=== PATIENT | female | born 2000 | race Caucasian/White ===

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

== ENCOUNTER 2021-04-25 15:01 | Emergency (ER) | payer BC ==
[2021-04-25 15:21] VITALS: TEMP 98.3
--- NOTE | 2021-04-25 16:16 | US ---
EXAMINATION TYPE: US venous doppler duplex LE LT DATE OF EXAM: 04/25/2021 4:08 PM COMPARISON: NONE CLINICAL HISTORY: 20-year-old female pain, hx of clots. History of Left DVT, Left calf swelling and n umbness. SIDE PERFORMED: Left TECHNIQUE: The lower extremity deep venous system is examined utilizing real time linear array sonog negin with graded compression, doppler sonography and color-flow sonography. FINDINGS: VESSELS IMAGED: Common Femoral Vein Deep Femoral Vein Greater Saphenous Vein * Femoral Vein Popliteal Vein Small Saphenous Vein * Proximal Calf Veins (* superficial vessels) Left Leg: Negative for DVT IMPRESSION: No evidence for DVT within the left lower extremity imaged from the groin to the upper calf.
--- NOTE | 2021-04-25 16:46 | ED ---
General Adult HPI - General Chief complaint: Extremity Problem,Nontraumatic Stated complaint: Left leg tingling Time Seen by Provider: 04/25/21 16:33 Source: patient, family, RN notes reviewed Mode of arrival: ambulatory Limitations: no limitations - History of Present Illness Initial comments: Patient is a pleasant 20-year-old female presenting to the emergency department with concerns for some tingling of her left anterior lower leg. Onset of symptoms was just the past day or so. Patient has recently been at the gym and doing a lot of walking at [facility]. No calf pain. No swelling. Patient does have history of previous blood clot in her leg and was somewhat concerned this could be occurring. Patient is not currently on any blood thinners. No chest pain or no dyspnea. No color change. Discomfort has been somewhat mild and persistent. - Related Data Home Medications Medication Instructions Recorded Confirmed Ascorbic Acid [Vitamin C] 500 mg PO BID 10/17/18 10/17/18 Calcium Carbonate [Calcium] 600 mg PO BID 10/17/18 10/17/18 Cholecalciferol (Vitamin D3) 2,000 unit PO BID 10/17/18 10/17/18 [Vitamin D3] Allergies Allergy/AdvReac Type Severity Reaction Status Date / Time No Known Allergies Allergy Verified 10/17/18 18:44 Review of Systems ROS Statement: Those systems with pertinent positive or pertinent negative responses have been documented in the HPI. ROS Other: All systems not noted in ROS Statement are negative. Constitutional: Denies: fever Eyes: Denies: eye pain ENT: Denies: ear pain Respiratory: Denies: cough, dyspnea Cardiovascular: Denies: chest pain Endocrine: Denies: fatigue Gastrointestinal: Denies: abdominal pain Genitourinary: Denies: dysuria Musculoskeletal: Reports: as per HPI. Denies: back pain Skin: Denies: rash Neurological: Denies: weakness Past Medical History Past Medical History: No Reported History History of Any Multi-Drug Resistant Organisms: None Reported Past Surgical History: No Surgical Hx Reported Past Psychological History: No Psychological Hx Reported Past Alcohol Use History: None Reported Past Drug Use History: None Reported General Exam Limitations: no limitations General appearance: alert, in no apparent distress Head exam: Present: normocephalic Eye exam: Present: normal appearance Neck exam: Present: normal inspection Respiratory exam: Present: normal lung sounds bilaterally Cardiovascular Exam: Present: regular rate, normal rhythm Expanded Peripheral pulses: 2+: Posterior Tibialis (L), Dorsalis Pedis (L) GI/Abdominal exam: Present: soft. Absent: tenderness Extremities exam: Present: normal inspection, normal capillary refill, other (No swelling or tenderness or erythema. Sensation intact.). Absent: tenderness, pedal edema, calf tenderness Back exam: Present: normal inspection Neurological exam: Absent: motor sensory deficit Psychiatric exam: Present: normal affect, normal mood Skin exam: Present: normal color Course Vital Signs 04/25/21 15:18 Temperature 98.3 F Pulse Rate 90 Respiratory 16 Rate Blood Pressure 119/84 O2 Sat by Pulse 98 Oximetry Medical Decision Making - Medical Decision Making Patient and family updated. They do not feel further evaluation or testing is necessary. - Radiology Data Radiology results: report reviewed (Ultrasound negative for DVT) Disposition Clinical Impression: Left leg paresthesias Disposition: HOME SELF-CARE Condition: Stable Instructions (If sedation given, give patient instructions): Paresthesia (ED), Leg Pain (ED) Additional Instructions: Please do follow-up to primary care physician in the next day or 2 for recheck. Return for chest pain or shortness of breath, fever, redness, swelling, calf discomfort, worsening or changing symptoms or other concerns. Is patient prescribed a controlled substance at d/c from ED?: No Referrals: Umang Snow MD [Primary Care Provider] - 1-2 days Time of Disposition: 16:45
[2021-04-25 16:52] VITALS: BP 99/61; PULSE 82; RESP 20
== END 2021-04-25 16:53 | disposition home or self-care (01) ==
LOC: EC 15:01
DX: R20.2 Paresthesia of skin (principal)
CPT/HCPCS: 99284